=== PATIENT | female | born 1990 | race African-American/Black ===

== ENCOUNTER 2016-06-27 08:32 | Emergency (ER) | payer OTHER ==
--- NOTE | ~2016-06-27 | CR63 ---
[facility] A Service of [facility] & [facility] RADIOLOGY TEXT RESULTS PATIENT: CAMERON PHAM LOCATION: SED : [birth year] UNIT #: [id number] AGE: [address]: Robby Diaz MD SEX: F ORDER DR: [id number] [address] [address] [id number] E MR#: [id number] Acc #: [id number] NAME: CAMERON PHAM : 1990 SEX: F STUDY DATE/TIME: 06/27/2016 8:29 UNIT: SED ROOM: STUDY DESCRIPTION: CR Chest 2 View Attending Physician: Robby Diaz M.D. Ordering Physician: Robby Diaz M.D. Primary Care Physician: Tomás Moraes M.D. MEDICAL IMAGING REPORT This report is preliminary unless electronic signature is present. EXAM PA and lateral chest INDICATIONS U-22-cr[age]-old female with cough for 2 weeks. No comparisons. FINDINGS The lungs are well expanded and clear. Calcified hilar lymph nodes. Heart size is normal. Visualized osseous structures are unremarkable. IMPRESSION No active disease. Dictated by... Fish Trejo M.D. THIS IS AN ELECTRONICALLY VERIFIED REPORT Fish Trejo M.D. at 06/28/2016 9:07 AM RENETTA/génesis TD: 06/27/2016 11:41 JOB #: [id number] MEDICAL IMAGING REPORT Page 1 of 1
[~2016-06-27 08:32] MED LIST: NO MEDICATIONS
[2016-06-27 08:51] LABS: INFLUENZA A NEG (NEG); INFLUENZA B NEG (NEG)
== END 2016-06-27 09:16 | disposition home or self-care (01) ==
LOC: SED 08:32
PROVIDERS: Emergency Medicine
DX: J06.9 Acute upper respiratory infection, unspecified (principal); F17.210 Nicotine dependence, cigarettes, uncomplicated; Z88.0 Allergy status to penicillin
CPT/HCPCS: 71020; 87804; 99283

== ENCOUNTER 2016-06-29 23:47 | Emergency (ER) | payer OTHER | END 2016-06-30 00:08 | disposition home or self-care (01) | LOC: SED 23:47 | DX: J02.0 Streptococcal pharyngitis (principal); Z88.0 Allergy status to penicillin | CPT/HCPCS: 87880; 99282 ==

== ENCOUNTER 2016-09-29 17:06 | Emergency (ER) | payer OTHER ==
--- NOTE | ~2016-09-29 | CR127 ---
[facility] A Service of [facility] RADIOLOGY TEXT RESULTS PATIENT: CAMERON PHAM LOCATION: SED : [birth year] UNIT #: [id number] AGE: [address]: Moncho Haider SEX: F ORDER DR: [id number] [address] [address] [id number] E MR#: [id number] Acc #: [id number] NAME: CAMERON PHAM : 1990 SEX: F STUDY DATE/TIME: 09/29/2016 17:22 UNIT: SED ROOM: STUDY DESCRIPTION: CR Foot Complete Min 3 View Rt Attending Physician: Moncho Haider P.A.-C. Ordering Physician: Moncho Haider P.A.-C. Primary Care Physician: Tomás Moraes M.D. MEDICAL IMAGING REPORT This report is preliminary unless electronic signature is present. EXAM Right foot series, 09/29/2016. HISTORY Trauma, heard a pop, cannot put pressure, hard across top of foot. Happened 1 hour ago. Pain. TECHNIQUE AP, lateral, oblique radiographs of the right foot presented. FINDINGS Normal bony mineralization. Oblique probably complete fracture distal shaft second metatarsal bone. Fracture plane most pronounced along the medial aspect of the shaft. I favor this is a complete fracture but there is a small possibility it could be incomplete. There is no extension into the metatarsophalangeal joint space. There is a complete oblique fracture distal shaft of the third metatarsal bone. The distal fracture fragment is displaced about 2 mm laterally. Minimal lateral angulation. No involvement of metatarsophalangeal joint space. No other acute bony abnormalities. Soft tissue swelling suggested dorsal and plantar aspects of the foot but no soft tissue defect, subcutaneous air, or radiodense foreign body. Dictated by... Elliot Davis M.D. THIS IS AN ELECTRONICALLY VERIFIED REPORT Elliot Davis M.D. at 10/02/2016 5:51 PM [facility] A Service of [facility] RADIOLOGY TEXT RESULTS PATIENT: CAMERON PHAM [place] [facility] [place] [birth year] UNIT #: [id number] AGE: [address]: Moncho Haider PAC SEX: F ORDER DR: TD: 09/30/2016 03:20 JOB #: [id number] MEDICAL IMAGING REPORT Page 1 of 1
== END 2016-09-29 19:01 | disposition home or self-care (01) ==
LOC: SED 17:06
DX: S92.321A Displaced fracture of second metatarsal bone, right foot, initial encounter for closed fracture (principal); X50.0XXA Overexertion from strenuous movement or load, initial encounter; Z88.0 Allergy status to penicillin
CPT/HCPCS: 29540; 73630; 99283